=== PATIENT | male | born 1990 | race Caucasian/White ===

== ENCOUNTER 2017-04-27 23:39 | Emergency (ER) | payer BC, OTHER ==
[~2017-04-27] VITALS: Ht 193 cm; Wt 145.4 kg
[2017-04-27] MEDS ORDERED: NEOSPORIN OINT 0.9 GM PKT (FLOOR STOCK) As Ordered ONE (23:59)
[2017-04-28] MEDS ORDERED: CEPHALEXIN 500 MG CAP PO ONE
[2017-04-28] MEDS ORDERED: ADACEL/BOOSTRIX VACCINE (DIPHTH/PERTUSS/ACELL/TETANUS)0.5ML SYR (90715) IM ONE
[2017-04-28] MEDS ORDERED: KEFL500C17 PO (00:26)
[2017-04-28 00:41] VITALS: BP 160/97
== END 2017-04-28 00:55 | disposition home or self-care (01) ==
LOC: M ED 23:39
DX: S61.216A Laceration without foreign body of right little finger without damage to nail, initial encounter (principal); S61.212A Laceration without foreign body of right middle finger without damage to nail, initial encounter; S60.221A Contusion of right hand, initial encounter; W25.XXXA Contact with sharp glass, initial encounter; Y92.830 Public park as the place of occurrence of the external cause; Y93.89 Activity, other specified; Y99.8 Other external cause status; G89.11 Acute pain due to trauma

== ENCOUNTER 2017-08-28 15:20 | Emergency (ER) | payer BC, OTHER, SELFPAY ==
[~2017-08-28] VITALS: Ht 193 cm; Wt 136.4 kg
[~2017-08-28 15:20] MED LIST: KEFL500C17 PO
--- NOTE | 2017-08-28 16:56 | REP ---
CHEST, TWO VIEWS: There is no evidence of acute infiltrate. No pleural effusion is seen. The heart is normal in size. The mediastinal silhouette is unremarkable. The visualized osseous structures are intact. IMPRESSION: No acute pulmonary disease. Signed by Celestine Soria MD 08/29/2017 09:16 A
[2017-08-28 17:31] VITALS: BP 143/72
== END 2017-08-28 18:00 | disposition home or self-care (01) ==
LOC: M ED 15:20
DX: J70.5 Respiratory conditions due to smoke inhalation (principal); R79.89 Other specified abnormal findings of blood chemistry

== ENCOUNTER 2022-07-14 23:44 | Emergency (ER) | payer SELFPAY ==
[~2022-07-14] VITALS: Ht 195.6 cm; Wt 182.1 kg
[2022-07-15 01:25] LABS: BASO # 0.1 10^3/uL (0.0-0.2); BASO % 0.5 % (0.0-1.0); EOS # 0.1 10^3/uL (0.0-0.5); EOS % 1.4 % (0.0-3.0); HEMATOCRIT 45.9 % (42.0-52.0); HEMOGLOBIN 14.7 g/dl (13.5-17.5); LYMPH # 3.3 10^3/uL (1.5-5.0); LYMPH % 33.5 % (24.0-44.0); MEAN CORPUSCULAR HEMOGLOBIN 28.2 pg (27.0-33.0); MEAN CORPUSCULAR VOLUME 87.9 fl (80.0-96.0); MONO % 10.1 % (2.0-8.0); NEUTROPHILS # 5.3 10^3/uL (1.5-8.5); NEUTROPHILS % 54.2 % (36.0-66.0); PLATELET COUNT, AUTOMATED 286 10^3/uL (150-450); RED BLOOD COUNT 5.22 10^6/uL (4.30-6.10); WHITE BLOOD COUNT 9.7 10^3/uL (4.0-10.0)
[2022-07-15 01:58] LABS: CK-MB VALUE MASS 1.3 NG/ML (<3.6); MB/CK RELATIVE INDEX 1.02 (< OR =4)
[2022-07-15 02:05] LABS: ALBUMIN 3.7 GM/DL (3.2-5.2); ALT/SGPT 67 U/L (12-78); BILIRUBIN,DIRECT < 0.1 MG/DL (0.0-0.2); BILIRUBIN,TOTAL 0.2 MG/DL (0.2-1.0); BLOOD UREA NITROGEN 14 MG/DL (7-18); CALCIUM LEVEL 9.2 MG/DL (8.5-10.1); CARBON DIOXIDE LEVEL 28 MEQ/L (21-32); CHLORIDE LEVEL 107 MEQ/L (98-107); CREATININE FOR GFR 1.03 MG/DL (0.70-1.30); GLOMERULAR FILTRATION RATE > 60.0 (>60); GLUCOSE, FASTING 121 MG/DL (70-100); LIPASE 105 U/L (73-393); POTASSIUM SERUM 4.5 MEQ/L (3.5-5.1); SODIUM LEVEL 140 MEQ/L (136-145)
[2022-07-15 04:16] LABS: CK-MB VALUE MASS 1.1 NG/ML (<3.6); MB/CK RELATIVE INDEX 1.01 (< OR =4)
[2022-07-15 04:57] VITALS: BP 189/85
[2022-07-15] MEDS ORDERED: HYDR-3490 PO (04:58)
== END 2022-07-15 05:29 | disposition home or self-care (01) ==
LOC: M ED 23:44
DX: R07.89 Other chest pain (principal); R06.02 Shortness of breath; I10 Essential (primary) hypertension

== ENCOUNTER 2025-04-04 10:07 | Emergency (ER) | payer OTHER, SELFPAY ==
[~2025-04-04] VITALS: Ht 195.6 cm; Wt 188.2 kg
[~2025-04-04 10:07] MED LIST changes: +HYDR-3490 PO
[2025-04-04 10:12] VITALS: TEMP 98
[2025-04-04] MEDS ORDERED: LISI40TA10 (10:18)
[2025-04-04] MEDS ORDERED: SPIR-10 (10:18)
[2025-04-04 12:00] VITALS: BP 161/73
[2025-04-04] MEDS: NS (Normal Saline) 0.9% 1,000 ML IV ONE (12:13)
[2025-04-04 12:29] LABS: KETONE, URINE AUTO RFX NEGATIVE (NEGATIVE); LEUKOCYTE ESTERASE UR AUTO RFX NEGATIVE (NEGATIVE); NITRITE, URINE AUTO RFX NEGATIVE (NEGATIVE); RBC, URINE AUTO RFX 1 /HPF (0-3); SQUAM EPITHELIAL CELL UR AURFX 0 /HPF (0-6); WBC, URINE AUTO RFX 2 /HPF (0-3)
[2025-04-04 12:30] LABS: BASO # 0.0 10^3/uL (0.0-0.2); BASO % 0.5 % (0.0-1.0); EOS # 0.1 10^3/uL (0.0-0.5); EOS % 1.0 % (0.0-3.0); LYMPH # 1.5 10^3/uL (1.5-5.0); LYMPH % 25.0 % (24.0-44.0); MONO # 0.7 10^3/uL (0.0-0.8); MONO % 11.5 % (2.0-8.0); NEUTROPHILS # 3.8 10^3/uL (1.5-8.5); NEUTROPHILS % 61.8 % (36.0-66.0); PLATELET COUNT, AUTOMATED 274 10^3/uL (150-450)
[2025-04-04 13:00] LABS: ALT/SGPT 61 U/L (7.0-40); AST/SGOT 28 U/L (<34); CALCIUM LEVEL 9.5 MG/DL (8.5-10.1); CARBON DIOXIDE LEVEL 25 MMOL/L (20-31); CHLORIDE LEVEL 103 MMOL/L (98-107); CREATININE FOR GFR 0.97 MG/DL (0.70-1.30); GLOMERULAR FILTRATION RATE > 90.0 (>60); POTASSIUM SERUM 4.6 MMOL/L (3.5-5.1); SODIUM LEVEL 141 MMOL/L (136-145)
[2025-04-04 13:07] VITALS: O2SAT 97
== END 2025-04-04 13:21 | disposition home or self-care (01) ==
LOC: M ED 10:07
DX: E86.0 Dehydration (principal); N17.8 Other acute kidney failure; I10 Essential (primary) hypertension; Z79.899 Other long term (current) drug therapy